=== PATIENT | female | born 1985 | race Caucasian/White ===

== ENCOUNTER 2016-12-31 11:02 | Emergency (ER) | payer BC ==
[2016-12-31 11:11] VITALS: BP 161/79
[2016-12-31 12:46] LABS: Hematocrit 38 % (35-47); Hemoglobin 12.4 g/dl (12.0-16.0); Mean Corpuscular HGB Conc 33 g/dl (31-36); Mean Corpuscular Hemoglobin 28 pg (27-31); Mean Corpuscular Volume 85 fL (80-97); Mean Platelet Volume 8 um3 (7.4-10.4); Red Blood Count 4.48 10^6/ul (4.0-5.4); Red Cell Distribution Width 15 % (10.5-15); White Blood Count 13.2 10^3/ul (3.5-10.8)
[2016-12-31 12:47] LABS: Urine Bilirubin Negative (Negative); Urine Glucose Negative (Negative); Urine Nitrite Negative (Negative)
[2016-12-31 13:02] LABS: Albumin 4.5 g/dL (3.2-5.2); BUN/Creatinine Ratio 10.6 (8-20); C Reactive Protein 32.08 mg/L (< 5.00); Calcium 9.7 mg/dL (8.6-10.3); EGFR African American 135.2 (>60); EGFR Non-African American 105.2 (>60); Globulin 3.2 g/dL (2-4); Potassium 3.7 mmol/L (3.5-5.0); Total Bilirubin 0.5 mg/dL (0.2-1.0); Total Protein 7.7 g/dL (6.4-8.9)
--- NOTE | 2016-12-31 13:54 | RAD ---
HISTORY: Left lower quadrant pain in a female COMPARISONS: None TECHNIQUE: Multiple transverse and longitudinal ultrasound images were obtained of the pelvis using grayscale, color flow, spectral and M-mode sonographic imaging. FINDINGS: UTERUS: The uterus is normal in shape, size, contour, and echotexture. GESTATION: A pole is not visualized. There is a 4 mm yolk sac identified. The gestational sac is located at the right fundal uterus. The mean gestational sac diameter measures 1.2 centimeters yielding a gestational age of 6 weeks. CUL-DE-SAC: There is no free fluid within the cul-de-sac. RIGHT OVARY: The right ovary measures 4.1 x 2.1 x 3.9 cm. LEFT OVARY: The left ovary measures 5.3 x 4.6 x 4.7 cm. Multiple anechoic and avascular structures are noted in the left ovary the largest measuring 4 cm in greatest dimension IMPRESSION: 1. A gestational sac is identified at the right fundal height uterus with a mean diameter corresponding to a gestational age of 6 weeks. Within this gestational sac a yolk sac is identified but a pole is not visualized. The location of the gestational sac could be associated with cornual ectopic . Close clinical and sonographic follow-up including serial beta hCGs is advised. 2. Multiple cystic structures in the left ovary are seen, the largest measuring 4 cm in greatest dimension, which could represent the corpus luteum.
--- NOTE | 2016-12-31 14:18 | ED ---
Ngozi Cardenas Michael, scribed for Oli Torres MD on 12/31/16 at 1306 . Abdominal Pain/Female - HPI Summary HPI Summary: 31 y/o female was referred to the ED by [facility] today. She presents, to the ED, with constant LLQ pain that started 4 days ago. The pt reports that the abd pain spontaneously worsened 3 days ago, and the pain kept her from sleeping. The abd pain radiates to her left groin and down her LLE. She notes that Ibuprofen does not alleviate the pain, and currently the pain is at a 6 out of 10 on a pain severity scale. The pt also c/o diarrhea and denies n/v, vaginal bleeding, and vaginal discharge. The pt's LNMP was from 11/13/16 to 11/18/16. She states having a false home test 2 weeks ago, but when she was at [facility] her urine showed that she was . The pt has recently stopped taking her control in October. The PMHx is significant for polycystic ovarian syndrome and anxiety. The FHx is significant for CAD, HTN, and CA. - History of Current Complaint Chief Complaint: EDOBProblems Stated Complaint: LT SIDE ABD PAIN Time Seen by Provider: 12/31/16 12:18 Hx Obtained From: Patient, Medical Records ?: Yes Onset/Duration: Sudden Onset, Lasting Days, Still Present Timing: Constant Severity Initially: Moderate Severity Currently: Moderate Pain Intensity: 5 Pain Scale Used: 0-10 Numeric Location: Discrete At: LLQ Radiates: Yes Radiates to: Other - left roberto and LLE Alleviating Factor(s): Nothing Associated Signs and Symptoms: Positive: Diarrhea. Negative: Vaginal Bleeding, Vaginal Discharge, Nausea, Vomiting Allergies/Adverse Reactions: Allergies Allergy/AdvReac Type Severity Reaction Status Date / Time Amoxicillin [From Augmentin] Allergy Nausea And Verified 12/31/16 11:11 Vomiting Clavulanic Acid Allergy Nausea And Verified 12/31/16 11:11 [From Augmentin] Vomiting Latex Allergy Rash Verified 12/31/16 11:11 PMH/Surg Hx/FS Hx/Imm Hx Previously Healthy: No - polycystic ovarian syndrome Sensory History: Reports: Hx Contacts or Glasses - GLASSES Denies: Hx Hearing Aid Opthamlomology History: Reports: Hx Contacts or Glasses - GLASSES Psychiatric History: Reports: Hx Anxiety - Surgical History Surgery Procedure, Year, and Place: TONSILLECTOMY A CHILD- POST OP NAUSEA. WISDOM TEETH REMOVAL Hx Anesthesia Reactions: No - Immunization History Date of Tetanus Vaccine: up to date Infectious Disease History: No Infectious Disease History: Denies: Traveled Outside the [place] in Last 30 Days - Family History Known Family History: Positive: Cardiac Disease, Hypertension, Other - CA - Social History Occupation: Employed Full-time Lives: With Family Alcohol Use: Weekly Alcohol Amount: 1-2X PER WEEK Substance Use Type: Reports: None Smoking Status (MU): Never Smoked Tobacco Have You Smoked in the Last Year: No Review of Systems Negative: Fever Positive: Abdominal Pain, Diarrhea. Negative: Vomiting, Nausea Positive: other - no vaginal bleeding. Negative: discharge All Other Systems Reviewed And Are Negative: Yes Physical Exam - Summary Physical Exam Summary: VITAL SIGNS: Reviewed. GENERAL: Patient is an obese female who is lying comfortable in the stretcher. Patient is not in any acute respiratory distress. HEAD AND FACE: Normocephalic and atraumatic. EYES: PERRLA, EOMI x 2, No injected conjunctiva. EARS: Hearing grossly intact. Ear canals and tympanic membranes are WNL. MOUTH: Oropharynx within normal limits. NECK: Supple, trachea is midline, no adenopathy, no JVD. CHEST: Symmetric, no tenderness at palpation LUNGS: Clear to auscultation bilaterally. No wheezing or crackles. CVS: RRR,, S1 and S2 present, no murmurs or gallops appreciated. ABDOMEN: Soft, positive LLQ and left pelvic tenderness. No signs of distention. Positive bowel sounds. No rebound no guarding, and no masses palpated. No abdominal bruit or pulsations. EXTREMITIES: FROM in all major joints, no edema, no cyanosis or clubbing. NEURO: Alert and oriented x 3. No acute neurological deficits. Speech is normal. SKIN: Dry and warm Triage Information Reviewed: Yes Vital Signs On Initial Exam: Initial Vitals Temp Pulse Resp BP Pulse Ox 99.6 F 98 17 161/79 100 12/31/16 11:05 12/31/16 11:05 12/31/16 11:05 12/31/16 11:05 12/31/16 11:05 Vital Signs Reviewed: Yes Diagnostics - Vital Signs Vital Signs Temp Pulse Resp BP Pulse Ox 12/31/16 11:05 99.6 F 98 17 161/79 100 - Laboratory Lab Results: Lab Results 12/31/16 12/31/16 12/31/16 Range/Units 12:30 12:30 12:30 WBC 13.2 H (3.5-10.8) 10^3/ul RBC 4.48 (4.0-5.4) 10^6/ul Hgb 12.4 (12.0-16.0) g/dl Hct 38 (35-47) % MCV 85 (80-97) fL MCH 28 (27-31) pg MCHC 33 (31-36) g/dl RDW 15 (10.5-15) % Plt Count 401 (150-450) 10^3/ul MPV 8 (7.4-10.4) um3 Neut % (Auto) 71.5 (38-83) % Lymph % (Auto) 20.5 L (25-47) % Tate % (Auto) 6.2 (1-9) % Eos % (Auto) 1.3 (0-6) % Baso % (Auto) 0.5 (0-2) % Absolute Neuts (auto) 9.4 H (1.5-7.7) 10^3/ul Absolute Lymphs (auto) 2.7 (1.0-4.8) 10^3/ul Absolute Monos (auto) 0.8 (0-0.8) 10^3/ul Absolute Eos (auto) 0.2 (0-0.6) 10^3/ul Absolute Basos (auto) 0.1 (0-0.2) 10^3/ul Absolute Nucleated RBC 0.01 10^3/ul Nucleated RBC % 0 Sodium 136 (133-145) mmol/L Potassium 3.7 (3.5-5.0) mmol/L Chloride 104 (101-111) mmol/L Carbon Dioxide 23 (22-32) mmol/L Anion Gap 9 (2-11) mmol/L BUN 7 (6-24) mg/dL Creatinine 0.66 (0.51-0.95) mg/dL Est GFR ( Amer) 135.2 (>60) Est GFR (Non-Af Amer) 105.2 (>60) BUN/Creatinine Ratio 10.6 (8-20) Glucose 97 (70-100) mg/dL Calcium 9.7 (8.6-10.3) mg/dL Total Bilirubin 0.50 (0.2-1.0) mg/dL AST 25 (13-39) U/L ALT 33 (7-52) U/L Alkaline Phosphatase 35 (34-104) U/L C-Reactive Protein 32.08 H (< 5.00) mg/L Total Protein 7.7 (6.4-8.9) g/dL Albumin 4.5 (3.2-5.2) g/dL Globulin 3.2 (2-4) g/dL Albumin/Globulin Ratio 1.4 (1-3) Amylase 23 L (29-103) U/L Lipase 12 (11.0-82.0) U/L Beta HCG, Quant 35550.00 mIU/mL Urine Color Straw Urine Appearance Clear Urine pH 6.0 (5-9) Ur Specific Jadwin 1.004 L (1.010-1.030) Urine Protein Negative (Negative) Urine Ketones Negative (Negative) Urine Blood Negative (Negative) Urine Nitrate Negative (Negative) Urine Bilirubin Negative (Negative) Urine Urobilinogen Negative (Negative) Ur Leukocyte Esterase Negative (Negative) Urine Glucose Negative (Negative) Result Diagrams: 12/31/16 12:30 12/31/16 12:30 Lab Statement: Any lab studies that have been ordered have been reviewed, and results considered in the medical decision making process. - Additional Comments Diagnostic Additional Comments: US Transvaginal:Radiologist- 1. A gestational sac is identified at the right fundal height uterus with a mean diameter corresponding to a gestational age of 6 weeks. Within this gestational sac a yolk sac is identified but a pole is not visualized. The location of the gestational sac could be associated with cornual ectopic . Close clinical and sonographic follow-up including serial beta hCGs is advised. 2. Multiple cystic structures in the left ovary are seen, the largest measuring 4 cm in greatest dimension, which could represent the corpus luteum. Abdominal Pain Fem Course/Dx - Course Course Of Treatment: 31 y/o female was referred to the ED by [facility]. She presents, to the ED, with constant LLQ pain that started 4 days ago. The pt reports that the abd pain spontaneously worsened 3 days ago, and the pain kept her from sleeping. The abd pain radiates to her left groin and down her LLE. She notes that Ibuprofen does not alleviate the pain, and currently the pain is at a 6 out of 10 on a pain severity scale. The pt also c/o diarrhea and denies n /v, vaginal bleeding, and vaginal discharge. The pt's LNMP was from 11/13/16 to 11/18/16. She states having a false home test 2 weeks ago, but when she was at [facility] her urine showed that she was . The pt has recently stopped taking her control. Blood work found to be WNL except for increase WBC of 13.2 w/o bands. CRP 32 and BHCG 37635. UA is negative for UTI. Pelvic U/S impression: 1. A gestational sac is identified at the right fundal height uterus with a mean diameter corresponding to a gestational age of 6 weeks. Within this gestational sac a yolk sac is identified but a pole is not visualized. The location of the gestational sac could be associated with cornual ectopic . Close clinical and sonographic follow-up including serial beta hCGs is advised. 2. Multiple cystic structures in the left ovary are seen, the largest measuring 4 cm in greatest dimension, which could represent the corpus luteum. I discussed the symptoms, findings, and test results with Dr. Hinton ([employer]) and she recommended to discharge patient home and f/u at her office on Sunday. I discussed all the findings and test results and plan with the patient. Patient was instructed to return to the emergency room immediately if any of the symptoms return or worsens. If she develops increase pain and vaginal bleeding and discharge. Plan of care was discussed with the patient and understands and agrees. All questions were answered at patient satisfaction. There were no further complaints or concerns. P/E: Lungs : CTA B/L. Good air exchange. No wheezing or crackles heard. CVS: S1 and S2 present. No murmurs appreciated. Patient is alert and oriented x 3. Patient is hemodynamically stable. Patient will be discharged home with follow up with Dr. Hinton. - Diagnoses Differential Diagnosis: Positive: Diverticulitis, Ectopic , Ovarian Cyst, Provider Diagnoses: LLQ pain, - Provider Notifications Discussed Care Of Patient With: Dr. Hinton (OBGYN) Time Discussed With Above Provider: 14:09 - pt will follow up with Dr. Hinton Discharge - Discharge Plan Condition: Stable Disposition: HOME Patient Education Materials: (ED), Abdominal Pain in (ED) Referrals: Nhung Hinton MD [Medical Doctor] - Additional Instructions: You will follow up with Dr. Hinton (OBGYN) within the next 2-3 days. You must return to the Emergency Room if you have an increase in pain, develop vaginal bleeding/discharge, fever, or chills. The documentation as recorded by the Ngozi red Michael accurately reflects the service I personally performed and the decisions made by me, Oli Torres MD.
== END 2016-12-31 14:26 | disposition home or self-care (01) ==
LOC: ED 11:02
DX: R10.32 Left lower quadrant pain (principal); Z34.90 Encounter for supervision of normal pregnancy, unspecified, unspecified trimester; R19.7 Diarrhea, unspecified
CPT/HCPCS: 36415; 76817; 80053; 81003; 82150; 83690; 84702; 85025; 86140; 99282